=== PATIENT | female | born 1970 | race Caucasian/White ===

== ENCOUNTER 2023-07-01 07:34 | Emergency (ER) | payer OTHER, MEDICARE ==
[~2023-07-01] VITALS: Ht 170.2 cm; Wt 113.4 kg
[2023-07-01 08:56] VITALS: BP 161/84
[2023-07-01] MEDS ORDERED: CYCL10 PO (08:56)
[2023-07-01] MEDS ORDERED: CEPH500 PO (08:56)
[2023-07-01] MEDS ORDERED: HYDR1TAB94 PO (08:56)
[2023-07-01] MEDS ORDERED: Acetaminophen650 M1 PO (09:59)
== END 2023-07-01 09:56 | disposition home or self-care (01) ==
LOC: ER 07:34
DX: S09.90XA Unspecified injury of head, initial encounter (principal); S16.1XXA Strain of muscle, fascia and tendon at neck level, initial encounter; S20.219A Contusion of unspecified front wall of thorax, initial encounter; V40.5XXA Car driver injured in collision with pedestrian or animal in traffic accident, initial encounter; Y92.410 Unspecified street and highway as the place of occurrence of the external cause
CPT/HCPCS: 70450; 71046; 72125; 99284-25; L0160